=== PATIENT | male | born 1970 | race Caucasian/White ===

== ENCOUNTER 2017-03-12 11:12 | Emergency (ER) | payer OTHER ==
[2017-03-12 11:26] VITALS: BP 142/94; PULSE 55; O2SAT 98
[2017-03-12 11:27] VITALS: TEMP 98.5
[2017-03-12] MEDS ORDERED: KETOROLAC TROMETHAMINE 30 MG/ML SOL ONE (11:50)
[2017-03-12] MEDS ORDERED: SOLUMEDROL 125 MG/2 ML 125 MG/2 ML PDS ONE (11:50)
[2017-03-12] MEDS ORDERED: SOLUMEDROL 125 MG/2 ML 125 MG/2 ML PDS IM ONE (11:51)
[2017-03-12] MEDS ORDERED: KETOROLAC TROMETHAMINE 30 MG/ML SOL IM ONE (11:51)
== END 2017-03-12 12:37 | disposition home or self-care (01) | DRG 552 ==
LOC: ED 11:12
DX: M54.41 Lumbago with sciatica, right side (principal); G89.29 Other chronic pain
CPT/HCPCS: 99283; J1885; J2930

== ENCOUNTER 2018-02-16 00:52 | Emergency (ER) | payer BC, OTHER ==
[2018-02-16] MEDS ORDERED: SODIUM CHLORIDE 0.9% 1000ML 1,000 ML IV SCH ×2 (01:15→03:00)
[2018-02-16 01:29] LABS: HEMATOCRIT 44 % (39-53); MEAN CORPUSCULAR HGB CONC 35.5 gm/dl (32.0-36.0); MEAN CORPUSCULAR VOLUME 90 fL (80-100)
[2018-02-16 01:32] LABS: ALBUMIN 4.3 gm/dl (3.4-5.0); ALT 40 IU/L (14-63); CALCIUM 8.7 mg/dl (8.5-10.1); GLOM FILT RATE 87 mL/min (>60); POTASSIUM 3.3 mMol/L (3.5-5.1); SODIUM 141 mMol/L (136-145)
[2018-02-16 01:46] LABS: BASOPHILS % (MANUAL) 0 % (0-3); EOSINOPHILS % (MANUAL) 0 % (0-9); LYMPHOCYTES % (MANUAL) 28 % (10-50); NORMAL RBCS PRESENT
[2018-02-16 02:23] LABS: APPEARANCE,URINE Clear; BILIRUBIN,URINE NEGATIVE (NEGATIVE); COLOR,URINE Yellow; GLUCOSE, URINE (UA) NEGATIVE (NEGATIVE); KETONES,URINE NEGATIVE (NEGATIVE); LEUKOCYTE ESTERASE ,URINE NEGATIVE (NEGATIVE); NITRATE,URINE NEGATIVE (NEGATIVE); OCCULT BLOOD,URINE TRACE LYSED (NEG-TRACE); UROBILINOGEN,URINE 0.2 (0.2-1.0 EU)
[2018-02-16 02:35] LABS: AMPHETAMINES NEGATIVE (NEGATIVE); METHADONE NEGATIVE (NEGATIVE); OPIATES(OP13) NEGATIVE (NEGATIVE); PROPOXYPHENE(PPX) NEGATIVE (NEGATIVE); RBC,URINE NEGATIVE (0-3AV/HPF); TRICYCLIC ANTIDEPRESSANTS NEGATIVE (NEGATIVE); WBC,URINE NEGATIVE (0-5AV/HPF)
[2018-02-16 02:36] LABS: OXYCODONE(OXY) POSITIVE (NEGATIVE)
[2018-02-16 04:49] VITALS: RESP 20
[2018-02-16 08:23] VITALS: BP 113/75; PULSE 85; TEMP 98.4; O2SAT 97
== END 2018-02-16 09:15 ==
LOC: ED 00:52
DX: T40.2X2A Poisoning by other opioids, intentional self-harm, initial encounter (principal)
CPT/HCPCS: 36415; 80053; 80305; 80307; 81001; 84443; 85007; 85027; 99285